=== PATIENT | male | born 1930 | race Hispanic/Latino ===

== ENCOUNTER 2017-11-21 06:20 | Inpatient (IN) | payer OTHER ==
[2017-11-21 06:53] LABS: #Eosinphils 0.1 thou/uL (0.0-0.7); #Lymphocytes 1.2 thou/uL (1.20-3.40); #Monocytes 0.9 thou/uL (0.11-0.59); #Neutrophils 6.7 thou/uL (1.40-6.50); %Basophils 0.1 % (0.0-1.0); %Eosinophils 0.9 % (0.0-10.0); %Lymphocytes 13.8 % (21.0-51.0); %Monocytes 10.4 % (0.0-10.0); %Neutrophils 74.8 % (42.0-75.0); Hemoglobin 12.1 g/dL (14.0-18.0); Mean Corpuscular HGB CONC 31.5 g/dL (32.0-36.0); Mean Corpuscular Hemoglobin 21.5 pg (27.0-31.0); Mean Corpuscular Volume 68.3 fL (78.0-98.0); Mean Platelet Volume 11.2 fL (7.4-10.4); Platelet Count 125 thou/uL (130-400); RBC Distribution Width 15.1 % (11.5-14.5); Red Blood Cell (RBC) Count 5.61 mill/uL (4.70-6.10)
[2017-11-21 07:05] LABS: INR-International Normal Ratio 1.2; Prothrombin Time 15.2 SEC (12.0-14.7)
[2017-11-21 07:12] LABS: ALT (SGPT) 20 U/L (8-55); AST (SGOT) 44 U/L (5-34); Albumin 3.8 g/dL (3.4-4.8); Alkaline Phosphatase 104 U/L (40-150); Anion Gap 16 mmol/L (10-20); BUN (Urea Nitrogen) 18 mg/dL (8.4-25.7); Bilirubin, Total 0.4 mg/dL (0.2-1.2); CK (CPK) 381 U/L (30-200); Calc. Creatinine Clearance 0 mL/min (70-130); Calcium 8.4 mg/dL (7.8-10.44); Carbon Dioxide 15 mmol/L (23-31); Chloride 111 mmol/L (98-107); Estimated GFR-MDRD Greater than 90; Globulin 2.6 g/dL (2.4-3.5); Glucose 111 mg/dL (83-110); Lipase 77 U/L (8-78); Potassium 4.4 mmol/L (3.5-5.1); Protein, Total 6.4 g/dL (5.8-8.1); Sodium 138 mmol/L (136-145)
[2017-11-21 07:24] LABS: PTT 161.5 SEC (22.9-36.1)
[2017-11-21] MEDS ORDERED: Furosemide 40 MG/4 ML VIAL ONE (07:40)
[2017-11-21 07:41] LABS: MDiff Complete? YES; PLT Morphology Comment Appears Decreased; Polychromasia SLIGHT = 2-3 cells (100X) (0-2/hpf)
[2017-11-21] MEDS ORDERED: Heparin 25,000 units/D5W 500 ML ONE (07:49)
[2017-11-21] MEDS ORDERED: Clopidogrel Bisulfate 300 MG TAB ONE (07:59)
[2017-11-21] MEDS ORDERED: Nitroglycerin 100MG/250ML BOT 250 ML ONE (07:59)
[2017-11-21] MEDS ORDERED: Adenosine 6 MG/2 ML VIAL ONE (08:05)
[2017-11-21] MEDS ORDERED: Aggrastat 12.5 MG/250 ML 250 ML ONE (08:23)
--- NOTE | 2017-11-21 08:31 | RAD ---
CHEST 1 VIEW: Date: 11/21/17 HISTORY: Chest pain. FINDINGS: Cardiac silhouette is magnified by projection. Pulmonary vasculature upper limits of normal with mild reticulonodular interstitial prominence throughout each lung and patchy bibasilar infiltrates. Media stinum is midline with aortic calcification. Lungs are hyperinflated. No lobar consolidation or evide nce of pneumothorax. Defibrillator patch overlies the right upper lateral chest. IMPRESSION: 1. Mild pulmonary vascular congestion may be related to increased fluid status. 2. COPD. 3. Atherosclerosis. POS: [facility]
[2017-11-21] MEDS ORDERED: Heparin 10,000 UNITS/1 ML VIAL ONE (08:34)
[2017-11-21] MEDS ORDERED: Mag-Al 1200 mg/1200 mg/30 ML UDCUP PO PRN (08:55)
[2017-11-21] MEDS ORDERED: Aggrastat 12.5 MG/250 ML 250 ML IVPB SCH (09:00)
[2017-11-21] MEDS ORDERED: Nitroglycerin 50 MG/250 ML BOT 250 ML IVPB SCH (09:00)
[2017-11-21] MEDS ORDERED: Sodium Chloride 0.9% 1,000 ML IV SCH (09:00)
[2017-11-21 09:15] LABS: Cardiac Risk 3.7 (Less than 4.5)
--- NOTE | 2017-11-21 10:10 | RAD ---
CHEST ONE VIEW: History: 87-year-old male with history of chest pain, stemi alert. Comparison: 11-21-17 FINDINGS: Monitor leads overlie the chest. Heart size is within normal limits. Bilateral interstitial and alveo lar edema changes are noted, primarily in the perihilar regions with small right pleural effusion, th e amount of edema appears to be less marked than on the prior study. IMPRESSION: Slightly improving bilateral edema. Continued short term follow up. POS: [facility]
--- NOTE | 2017-11-21 10:35 | OP ---
PROCEDURE: Left heart catheterization, left coronary arteriography, left ventriculography, stent placed in the proximal LAD. INDICATION: Anteroseptal STEMI. The patient was brought from the emergency room and right groin was prepped and draped in usual fashion. 1% lidocaine was infiltrated. A 6 Danish sheath placed into the right femoral artery. The J-wire did not advance. Then, a right 4 catheter with a Wholey wire was inserted. This was then removed. Contrast injection was performed through the sheath providing an adequate road map and the right 4 and Wholey wire were reinserted. The right 4 was advanced into the aorta and the decision was made to go ahead and perform right coronary angiography since the right [address]. This was performed and then the right 4 was exchanged over wire for a 6-Danish Kamar left 4. Left coronary arteriography was performed. With the patient's 3-vessel disease and the LAD having reperfused, left ventriculogram was then performed. Pigtail was inserted over the exchange wire and pressure obtained. The left ventricular end diastolic pressure was 52. IV nitroglycerin was increased and the patient was given 40 mg IV Lasix. Over 3-4 minutes the EDP fell to 34. Left ventriculogram was then performed using 30 mL of contrast at 12 mL per second in BRENNAN 30 degree projection. Pressure were obtained. With the 3-vessel disease, it is felt that his best option at this time would be bypass surgery. Two surgeons were in the operating room and a third was out of town and so then the decision was made to proceed with just stenting of the culprit lesion - the proximal LAD. The pigtail was removed over an exchange wire, and a 6-Danish left 3.5 guide catheter was inserted. Floppy choice wire was advanced to the distal LAD. It was predilated with Emerge 3.0 x 15 mm balloon. This was removed and a rebel 3.0 x 20 mm stent was positioned and deployed. There continued to be DERREK 1 flow down the artery. Also, at the proximal portion of the stent was either a dissection or thrombus and the decision was made to stent this area. Rebel 3.0 x 8 mm stent was then positioned proximal to the previous stent and deployed. Multiple doses of intracoronary nitroglycerin and adenosine were given. The flow was better after placement of the second stent. After conclusion of the procedure LAD flow was DERREK 2-3. During the procedure, the patient received multiple doses of intravenous heparin based on the ACT. Also, Aggrastat bolus and drip were started. He received 600 mg of Plavix p.o. The sheath was sutured in place. The patient was transferred to CCU. RESULTS: Pressures, aorta 181/59, mean of 101. Left ventricle 176/51. End diastolic pressure fell to 32 after intravenous Lasix and increasing IV nitroglycerin. CORONARY ARTERIOGRAPHY: 1. Left main was normal. 2. The LAD had a 95% proximal stenosis, 50 and 70% mid stenosis and a 50% distal stenosis. The first diagonal had a 70% stenosis. 3. The circumflex had a 50% mid stenosis. There was a 70% lesion in the first obtuse marginal. 4. The right coronary artery had a 50% proximal stenosis and an 80% mid stenosis. There is a 70% stenosis of the right ventricular branch. LEFT VENTRICULOGRAM: There was anteroapical akinesis with ejection fraction of 30-35%. There was moderate mitral regurgitation. Intervention results; the initial proximal LAD lesion was 95%. Final lesion was 0%. IMPRESSION: 1. Three vessel coronary artery disease. 2. Moderate left ventricular dysfunction. 3. Moderate mitral regurgitation. 4. Successful bare metal stent placement in the proximal LAD. [facility]OSPITALSergey
[2017-11-21] MEDS: Clopidogrel Bisulfate 75 MG TAB PO SCH (10:46)
--- NOTE | 2017-11-21 10:52 | HP ---
HISTORY: Dmitri Sanchez is an 87-year-old male who does not speak Cypriot. He is incarcerated in the senior living in [place]. This morning at approximately 4:00 a.m. he was apparently going to breakfast and had onset of central chest pressure. EKG at the senior living revealed significant ST segment elevation V1-V4. He was taken to the emergency room in [place] and subsequent EKG showed ST segments almost back to normal with inverted T waves anterolaterally. The patient is now transferred here for further care. He currently denies any chest discomfort. PAST MEDICAL HISTORY: Hypertension. MEDICATIONS: None. He was on lisinopril, but apparently stopped taking it because he said he felt better without taking it. The dose is unknown. He denies any history of hypercholesterolemia or diabetes. ALLERGIES: None. OPERATIONS: None. SOCIAL HISTORY: He smoked 1 pack per day prior to being incarcerated. He does not drink. FAMILY HISTORY: Negative for coronary artery disease. REVIEW OF SYSTEMS: Not obtained due to patient needing to go the [employer] and the language barrier. PHYSICAL EXAMINATION: VITAL SIGNS: Blood pressure 140/70, pulse of 100. The patient is on IV nitro drip. He also has received heparin 4000 units. HEENT: PERRL. NECK: Supple. CHEST: Clear. CARDIAC: S1 and S2 are normal, without any S3, S4 or murmurs. Carotid upstrokes normal without bruit. ABDOMEN: Normal bowel sounds, without tenderness. EXTREMITIES: Revealed no clubbing, cyanosis or edema. NEUROLOGIC: Grossly intact. SKIN: Warm and dry. LABORATORY: EKG findings as noted above. Blood work that resulted after the intervention; hemoglobin 12.1, hematocrit 38.3, white count 9000, platelets 125, 000. PTT 161.5 (on heparin drip), INR 1.2, sodium 138, potassium 4.4, chloride 111, carbon dioxide 15, BUN 18, creatinine 0.77, glucose 111, AST 44. CK 381. CK-MB 37.0. Troponin I 2.880. BNP 652. Chest x-ray reveals increased pulmonary vascularity bilaterally. IMPRESSION: 1. Anteroseptal ST-segment elevation myocardial infarction. 2. Hypertension, noncompliant with lisinopril. 3. Former smoker. PLAN: The situation was discussed through a cable tool operator. It was recommended that he undergo cardiac catheterization. Risks were discussed including , myocardial infarction, emergent CABG, restenosis, stent thrombosis, vessel perforation, stent thrombosis, restenosis, allergic reaction, kidney damage, etc. MTDD
[2017-11-21] MEDS: Lisinopril 2.5 MG TAB PO SCH (10:54)
--- NOTE | 2017-11-21 12:45 | CON ---
DATE OF CONSULTATION: 11/21/2017 REQUESTING PHYSICIAN: Dr. Diamond. CHIEF COMPLAINT: Chest pressure. HISTORY OF PRESENT ILLNESS: The patient is an 87-year-old inmate with the [place] [facility]. He awoke from sleep early this morning with severe chest pressure. He denied any nausea, kimberley phoresis, shortness of breath or radiation. He proceeded to shelter line for breakfast and a conversati on with one of the inmates in line with him centered around, he is not feeling well and other inmate was sufficiently concerned to seek out help. He was taken to the [facility] where apparently an EKG s howed anterolateral ST elevation consistent with acute myocardial infarction. He was taken first to the hospital in [place] and then transferred here. By the time he arrived here, the ST elevation chavez d largely resolved, although he had developed inversion of T waves in precordial leads. His chest pa in had for the most part resolved and his first troponin here was 2.880. He was taken urgently to e lab aide where he was found to have 3-vessel coronary artery disease. It was most notable for a ve ry high grade proximal LAD lesion on the order of 95% or perhaps even greater. That was stented usin g a bare metal stent with good angiographic result. Patient has some milder residual disease in his LAD and in circumflex system. He has high-grade lesion in his right coronary. LVEF is moderately re duced around the 30%-40% range with anteroapical hypokinesis or perhaps even akinesis. LVEDPs were m easured ranging from 35-51. He is currently pain free. He denies any antecedent symptoms similar to this, even if not as severe. He denies any other medical history, although apparently he previously had been on lisinopril, but he had quit taking it because he thought it made him feel bad. The shira ent is not taking any medicines on a regular basis in long-term. He was loaded with 300 mg of Plavix an d heparinized here. He was also given Lasix. He is currently on an Aggrastat infusion and daily See vix 75 mg a day and a baby aspirin a day. He has been started on Coreg 3.125 mg b.i.d. and lisinopri l 2.5 mg a day. PAST MEDICAL HISTORY: He denies any medical allergies. SOCIAL HISTORY: He used to smoke, but does not currently. FAMILY HISTORY: He denies any family history of coronary artery disease. REVIEW OF SYSTEMS: He denies any antecedent chest pain, pressure or squeezing, any eye, speech, faci al or extremity symptoms to suggest TIAs or strokes and he denies any leg pain consistent with claudi cation. He denies any shortness of breath. PHYSICAL EXAMINATION: GENERAL: He is an elderly appearing man in no distress. VITAL SIGNS: Heart rate 76, blood pressure 110/52, height is 5 feet 6 inches, weight is 127 pounds. He is edentulous. NECK: He has no JVD, no carotid bruits. LUNGS: He has distant breath sounds. CARDIOVASCULAR: Regular rate and rhythm. ABDOMEN: Soft, nontender, without masses or bruits. EXTREMITIES: He has palpable radial and left femoral pulses. He does not have left femoral or abdom inal bruit. He has an arterial sheath in place in the right groin. He has no obvious varicosities. No clubbing, cyanosis or edema. He has some atrophic skin changes. I was not able to palpate popli teal, dorsalis pedis or posterior tibial pulses. NEUROLOGIC: Grossly nonfocal. LABORATORY DATA AND IMAGING DATA: Showed white count of 9, hemoglobin of 12.1, hematocrit 38.3 and p latelets 125,000. PT is 15.2, INR 1.2. Electrolytes were normal. Glucose 111, BUN 18 and creatinin e 0.77. LFTs were normal. Albumin 3.8, calcium 8.4. CK-MB was 37 and troponin is 2.880, BNP was 65 2.4, triglycerides 87, cholesterol 123, LDL 73, HDL 33. His chest x-ray shows some cardiomegaly, pul monary edema, perhaps some COPD based on the lucency of the lung moffett, prominent of the vasculature and flattening of the diaphragms. He has some aortic knob calcification. EKG showed poor R-wave pr ogression in leads V1 through V3 with ST elevations in V2, 3 and 4 and inverted Ts in V2, 3, 4, and 5 . Cardiac catheterization is as described above. He has 70% or perhaps even 80% ostial lesion in a very high OM1 with some luminal irregularity in the circumflex proper affecting the origin of an OM3. He has a 70% or 80% lesion in the mid right coronary just beyond a large acute marginal. LVEF is a round 40%. IMPRESSION AND RECOMMENDATIONS: As by far the most critical both in angiographic degree of stenosis and location within LAD that has been addressed not quite adequately by PCI, I would be inclined to n ot pursue surgical revascularization for the remaining disease unless there is very clear symptomatic issues with it. Even with patient's advanced age and recent infarction, one could make an argument for multivessel stenting should his remaining disease, previous symptomatic, I would currently recomm end managing him medically.
[2017-11-21 13:44] LABS: CKMB 278.3 ng/mL (0-6.6); Troponin I 61.109 ng/mL (< 0.028)
[2017-11-21] MEDS ORDERED: Iopamidol 370 76% 100 ML VIAL ONE (13:45)
[2017-11-21] MEDS ORDERED: Iopamidol 370 76% 50 ML VIAL FS ONE (13:45)
[2017-11-21 16:05] VITALS: BMI 22.4
[2017-11-21] MEDS: Carvedilol 3.125 MG TAB PO SCH (17:33)
[2017-11-21 19:09] LABS: CKMB 252.7 ng/mL (0-6.6); Troponin I 97.997 ng/mL (< 0.028)
[2017-11-22 05:22] LABS: #Lymphocytes 1.2 thou/uL (1.20-3.40); #Monocytes 1.3 thou/uL (0.11-0.59); #Neutrophils 6.8 thou/uL (1.40-6.50); %Basophils 0.2 % (0.0-1.0); %Eosinophils 0.4 % (0.0-10.0); %Monocytes 13.5 % (0.0-10.0); %Neutrophils 72.9 % (42.0-75.0); Hemoglobin 10.9 g/dL (14.0-18.0); Mean Corpuscular HGB CONC 31.9 g/dL (32.0-36.0); Mean Corpuscular Hemoglobin 21.6 pg (27.0-31.0); Mean Corpuscular Volume 67.8 fL (78.0-98.0); Mean Platelet Volume 10.1 fL (7.4-10.4); Platelet Count 224 thou/uL (130-400); RBC Distribution Width 15.1 % (11.5-14.5); Red Blood Cell (RBC) Count 5.04 mill/uL (4.70-6.10); White Blood Cell (WBC) Count 9.3 thou/uL (4.8-10.8)
[2017-11-22 05:26] LABS: ALT (SGPT) 42 U/L (8-55); AST (SGOT) 131 U/L (5-34); Albumin 3.5 g/dL (3.4-4.8); Alkaline Phosphatase 98 U/L (40-150); Anion Gap 11 mmol/L (10-20); BUN (Urea Nitrogen) 25 mg/dL (8.4-25.7); Bilirubin, Total 0.6 mg/dL (0.2-1.2); Calc. Creatinine Clearance 54 mL/min (70-130); Calcium 8.5 mg/dL (7.8-10.44); Carbon Dioxide 21 mmol/L (23-31); Chloride 111 mmol/L (98-107); Estimated GFR-MDRD Greater than 90; Globulin 2.5 g/dL (2.4-3.5); Glucose 111 mg/dL (83-110); Potassium 4.3 mmol/L (3.5-5.1); Sodium 139 mmol/L (136-145)
[2017-11-22] MEDS: Clopidogrel Bisulfate 75 MG TAB PO SCH (09:13)
[2017-11-22] MEDS: Lisinopril 2.5 MG TAB PO SCH (09:13)
[2017-11-22] MEDS: Carvedilol 3.125 MG TAB PO SCH ×2 (09:13→16:47)
[2017-11-22] MEDS: Atorvastatin Calcium 20 MG TAB PO SCH (21:09)
--- NOTE | 2017-11-23 00:57 | CON ---
DATE OF CONSULTATION: 11/22/2017 HISTORY OF PRESENT ILLNESS: He is an 87-year-old inmate from [place] with acute coronary artery dis ease, STEMI, who underwent emergency cardiac catheterization by Cardiology. He is in the ICU, reason for consult. He was an inmate to the [place] [facility] system for a period of time. History is well outlined in his extensive medical notes. Cardiology found EF of 30%-35%, anterior apical akinesia, three-vessel LAD, moderate LV dysfunction. PAST MEDICAL HISTORY: History from the [facility] system states that his past medical history is pertine nt for hepatitis C, anemia, hypertension. PREVIOUS SURGERIES: Apparently retinal detachment. MEDICATIONS: From the list has included lisinopril 20 mg a day. Apparently, he was not taking his m edication. He was noncompliant. SOCIAL HISTORY: Tobacco, former alcohol, none. REVIEW OF SYSTEMS: Otherwise, difficult to obtain, but appears to be negative. He appears to be in no distress in the ICU with blood pressure 105/37, sats are 98, pulse rate of 80. Chest, no wheezing , no crackles. Cardiac, normal S1, S2. No gallops. ABDOMEN: Soft. No masses. LABORATORY DATA AND IMAGING: Electrolytes are normal. White count is normal. H&H is stable. Tropo dusty is elevated. EKG shows septal infarct. His chest x-ray shows CHF findings, cardiomegaly, increa sed vascularity. Appears somewhat worse following the catheterization. PHYSICAL EXAMINATION: GENERAL: He is awake, alert, responsive, in no distress. VITAL SIGNS: Pulse 80, sats 98%, blood pressure 130/80, respiration rate 18. CHEST: Bilateral crackles. CARDIAC: Normal S1, S2. No gallops. ABDOMEN: Soft. NEURO: Neurologically appropriate. New labs shows otherwise noted normal. IMPRESSION: 1. Status post myocardial infarction. 2. Status post cardiac catheterization. 3. Congestive heart failure. 4. Former smoker. 5. Hypertension. PLAN: Pulmonary will follow while in the ICU. If stable as per Cardiology, he can be moved out. Co ntinue cardiac care. Continue diuretics. Supportive care. This is a consultation note of 70 minutes, in which 50% spent in direct patient care.
[2017-11-23] MEDS: Lisinopril 2.5 MG TAB PO SCH (09:45)
[2017-11-23] MEDS: Clopidogrel Bisulfate 75 MG TAB PO SCH (09:46)
[2017-11-23] MEDS: Carvedilol 3.125 MG TAB PO SCH ×2 (09:47→16:14)
--- NOTE | 2017-11-23 12:27 | PQF ---
CLINICAL DOCUMENTATION IMPROVEMENT CLARIFICATION FORM: ICD-10 Updated PLEASE DO AN ADDENDUM TO THE PROGRESS NOTE WITH ANY DOCUMENTATION UPDATES OR ADDITIONS AND CARRY THROUGH TO DC SUMMARY. THANK YOU. DATE: 11/23/17 ATTN: DR. THOMSON Please exercise your independent, professional judgment in responding to the clarification form. Clinical indicators are provided on the bottom of this form for your review Please check appropriate box(s): HEART FAILURE: A. TYPE: [ ] Systolic / HFrEF [ ] Diastolic / HFpEF [ ] Combined Systolic / Diastolic B. ACUITY [ ] Acute [ ] Acute on Chronic [ ] Chronic [ ] Other diagnosis [ ] Unable to determine In addition, please specify: Present on Admission (POA): [ ] Yes [ ] No [ ] Unable to determine For continuity of documentation, please document condition throughout progress notes and discharge summary. Thank You. CLINICAL INDICATORS - SIGNS / SYMPTOMS / LABS CONSULTATION NOTE 11/22: "IMPRESSION: CONGESTIVE HEART FAILURE" BNP 652.4 RISKS: H/O HYPERTENSION (NONCOMPLIANCE WITH LISINOPRIL PER H&P 11/21) [place] TREATMENT: COREG (11/21-PRESENT) LISINOPRIL (11/21-PRESENT) CARDIOLOGY CONSULT CARDIAC MONITORING (This form is maintained as a part of the permanent medical record) 2014 [employer]. All Rights Reserved [email or web address] [email or web address] Office: [phone] [facility]AMPUSSergey
[2017-11-23] MEDS ORDERED: Furosemide 20 MG/2 ML VIAL SLOW IVP SCH (16:15)
--- NOTE | 2017-11-23 17:21 | RAD ---
CHEST ONE VIEW: 11/23/17 HISTORY: Hematemesis. COMPARISON: 11/21/17. FINDINGS: Atherosclerosis of the aorta is again noted. Normal cardiac silhouette. The pulmonary vessels are wit hin normal limits. Lungs are hyperinflated. Chronic changes throughout the lung parenchyma. No signif icant change in the degree of opacification. No significant pleural fluid. No pneumothorax or osseous abnormalities. IMPRESSION: Persistent opacification of the lung parenchyma which is presumed to be due to edema/volume overload. POS: [facility]
[2017-11-23] MEDS: Atorvastatin Calcium 20 MG TAB PO SCH (20:14)
[2017-11-23] MEDS ORDERED: Furosemide 40 MG/4 ML VIAL ONE (22:59)
[2017-11-23] MEDS: Acetaminophen 325 MG TAB PO PRN (23:07)
[2017-11-23] MEDS ORDERED: Furosemide 40 MG/4 ML VIAL SLOW IVP SCH (23:15)
[2017-11-24 06:21] LABS: Anion Gap 16 mmol/L (10-20); BUN (Urea Nitrogen) 43 mg/dL (8.4-25.7); Calc. Creatinine Clearance 45 mL/min (70-130); Calcium 8.2 mg/dL (7.8-10.44); Carbon Dioxide 18 mmol/L (23-31); Chloride 106 mmol/L (98-107); Estimated GFR-MDRD 67; Glucose 121 mg/dL (83-110); Potassium 3.8 mmol/L (3.5-5.1); Sodium 136 mmol/L (136-145)
[2017-11-24] MEDS: Carvedilol 3.125 MG TAB PO SCH ×2 (08:02→16:35)
[2017-11-24] MEDS: Furosemide 20 MG TAB PO SCH (08:02)
[2017-11-24] MEDS: Acetaminophen 325 MG TAB PO PRN (08:02)
[2017-11-24] MEDS: Clopidogrel Bisulfate 75 MG TAB PO SCH (08:02)
[2017-11-24] MEDS: Lisinopril 5 MG TAB PO SCH (08:02)
[2017-11-24] MEDS: Atorvastatin Calcium 20 MG TAB PO SCH (21:05)
[2017-11-25] MEDS ORDERED: Furosemide 40 MG/4 ML VIAL SLOW IVP SCH (04:15)
[2017-11-25] MEDS: Carvedilol 3.125 MG TAB PO SCH ×2 (09:28→16:32)
[2017-11-25] MEDS: Lisinopril 5 MG TAB PO SCH (09:28)
[2017-11-25] MEDS: Clopidogrel Bisulfate 75 MG TAB PO SCH (09:28)
[2017-11-25] MEDS: Furosemide 20 MG TAB PO SCH (09:28)
--- NOTE | 2017-11-25 11:01 | RAD ---
RADIOGRAPH CHEST 1 VIEW: Date: 11/25/17 Time: 0413 hours HISTORY: 87-year-old male with respiratory distress and hemoptysis. COMPARISON: 11/23/17 at 1542 hours. FINDINGS: Moderate, broad infiltrate in right upper lobe has become slightly worse. Infiltrate at the right med ial lower lung zone has become slightly worse. There is new dense infiltrate at the medial base of th e left lower lobe. No cardiomegaly or pulmonary venous engorgement. No pneumothorax. Hyperinflation c onsistent with COPD. No mediastinal widening. IMPRESSION: 1. Interval worsening of right upper lobe and right lower lobe pneumonia. 2. Interval development of new left lower lobe pneumonia. 3. Emphysema. JANN [] POS: [facility]
[2017-11-25 16:08] LABS: Hemoglobin 9.5 g/dL (14.0-18.0); Mean Corpuscular HGB CONC 32.1 g/dL (32.0-36.0); Mean Corpuscular Volume 68.6 fL (78.0-98.0); Mean Platelet Volume 10.4 fL (7.4-10.4); Platelet Count 185 thou/uL (130-400); Red Blood Cell (RBC) Count 4.32 mill/uL (4.70-6.10); White Blood Cell (WBC) Count 12.6 thou/uL (4.8-10.8)
[2017-11-25 16:24] LABS: Anisocytosis SLIGHT = 6-15 cells (100X) (0-5/hpf); Band 22 % (5-11); Lymphocytes 7 % (21-51); MDiff Complete? YES; Metamyelocyte 4 % (0-0); Microcytosis SLIGHT = 6-15 cells (100X) (0-5/hpf); Neutrophil 66 % (42-75); Ovalocytes SLIGHT = 2-5 cells (100X) (0-1/hpf); Poikilocytosis SLIGHT = 6-15 cells (100X) (0-5/hpf); Reactive Lymphocytes 1 % (0-10)
[2017-11-25] MEDS ORDERED: Sodium Chloride 0.9% 1,000 ML IV SCH (16:45)
[2017-11-25 16:58] LABS: Iron 14 ug/dL (65-175); Iron Binding Capacity, Total 289 mcg/dL (261-462)
[2017-11-25] MEDS: Piperacillin/Tazobactam 2.25 GM in Sodium Chloride 0.9% 100 ML IVPB SCH (20:50)
[2017-11-25] MEDS: Atorvastatin Calcium 20 MG TAB PO SCH (20:50)
--- NOTE | 2017-11-25 22:51 | CON ---
DATE OF CONSULTATION: 11/25/2017 HISTORY OF PRESENT ILLNESS: Mr. Sanchez for coronary disease. He had an LAD stent placed. He was seen by Dr. Johnson in the ICU. He signed off, Mr. Sanchez was transferred out. I was consulted today for an abnormal chest radiograph. His ejection fraction is 30% to 35%. He has on echocardiogram, mitral regurgitation was quantitated as moderate. He also has echocardiogram, evidence of pulmonary hypertension. He has moderate aortic insufficiency as well as tricuspid insufficiency. PAST HISTORY: He had an LAD stent placed. SOCIAL HISTORY: Not obtained. FAMILY HISTORY: Non contributory. REVIEW OF SYSTEMS: 10 point system review completed; otherwise negative. We were reconsulted for his radiograph. He denies cough. He denies shortness of breath. PHYSICAL EXAMINATION: VITAL SIGNS: His blood pressure 93/55, heart rate 58, respiratory rate is 20. He was lying flat in bed. Temperature curve has been reviewed. He had a temperature of 100.6 two days ago at 8:17 p.m., but he has not had any fever since then. GENERAL: He appears his age, he has temporal muscle wasting. NECK: Supple. He has no cervical lymphadenopathy. CHEST: Only hear very faint crackles almost into his chest. HEART: Regular rhythm. ABDOMEN: Soft. EXTREMITIES: Without clubbing, cyanosis, or edema. HEENT: pupils react. LABORATORY DATA: White count 2 days ago was 9.3. There is no lab today. Electrolytes yesterday were normal with the exception of a BUN of 43. His troponin peaked at 97 on the 1st. His BNP on 1st is 652. Chest radiograph reviewed looks more like pulmonary edema than pneumonia. He has absolutely no cough. Surprisingly; however, he is perfectly comfortable flat in bed. Given his relative hypotension. Gentle diuresis will have to be done cautiously. It is not unreasonable to start him on antimicrobial therapy, but I really doubt he has pneumonia. This is a 70 minute consult, with greater than 50% of time spent on unit coordination of care. AUDRA
--- NOTE | 2017-11-25 23:07 | EKG ---
Test Reason : POST STENTS X2-LAD Blood Pressure : / mmHG Vent. Rate : 089 BPM Atrial Rate : 089 BPM P-R Int : 156 ms QRS Dur : 084 ms QT Int : 372 ms P-R-T Axes : 078 067 099 degrees QTc Int : 452 ms Normal sinus rhythm Anteroseptal infarct (cited on or before 21-NOV-2017) T wave abnormality, consider lateral ischemia * ACUTE NM * Abnormal ECG When compared with ECG of 21-NOV-2017 06:23, (Unconfirmed) Serial changes of evolving Anteroseptal infarct Present Confirmed by Lilliana WILLIAM ([id number]) on 11/25/2017 11:06:38 PM Referred By: BERTO Confirmed By:Lilliana WILLIAM
--- NOTE | 2017-11-25 23:10 | EKG ---
Test Reason : Blood Pressure : / mmHG Vent. Rate : 085 BPM Atrial Rate : 085 BPM P-R Int : 154 ms QRS Dur : 084 ms QT Int : 362 ms P-R-T Axes : 075 067 118 degrees QTc Int : 430 ms Sinus rhythm with Premature atrial complexes with Abberant conduction Septal infarct (cited on or before 21-NOV-2017) Abnormal ECG When compared with ECG of 21-NOV-2017 09:26, (Unconfirmed) Abberant conduction is now Present Serial changes of evolving Septal infarct Present Confirmed by Lilliana WILLIAM ([id number]) on 11/25/2017 11:09:52 PM Referred By: BERTO Confirmed By:Lilliana WILLIAM
[2017-11-26] MEDS: Piperacillin/Tazobactam 2.25 GM in Sodium Chloride 0.9% 100 ML IVPB SCH (06:14)
[2017-11-26] MEDS: Clopidogrel Bisulfate 75 MG TAB PO SCH (08:19)
--- NOTE | 2017-11-26 09:58 | PRG ---
DATE OF SERVICE: 11/26/2017 SUBJECTIVE: This morning he is awake, alert, responsive, denies any shortness of breath. His EF was estimated at 40%. His chest x-ray did show some right-sided infiltrate, though clearly it appears t o be secondary to congestive heart failure. He has got no fever. Not coughing anything that looks d iscolored. PHYSICAL EXAMINATION: VITAL SIGNS: His maximum temperature has been 99.1. Blood pressure is 116/59, satting 96% on room a ir, respirations 16. CHEST: Chest reveals decreased breath sounds, no wheezing. CARDIAC: Normal S1, S2. No gallops. ABDOMEN: Soft, no masses. His BNP was 2000, H&H is 9 and 26. White count 12,000 with a slight left shift. IMPRESSION: Right-sided infiltrate, congestive heart failure versus pneumonia though he appears rela tively asymptomatic. PLAN: I suggest switching him over to oral Augmentin. Continue PT and supportive care. Eventually placement.
[2017-11-26] MEDS ORDERED: Furosemide 20 MG TAB PO SCH (15:30)
[2017-11-26] MEDS: Carvedilol 3.125 MG TAB PO SCH (15:59)
[2017-11-26] MEDS: Acetaminophen 325 MG TAB PO PRN (17:31)
[2017-11-26] MEDS: Atorvastatin Calcium 20 MG TAB PO SCH (21:28)
[2017-11-26] MEDS: Amoxicillin/Potassium Clav 250 MG TAB PO SCH (21:28)
[2017-11-27 05:42] LABS: Anion Gap 15 mmol/L (10-20); BUN (Urea Nitrogen) 44 mg/dL (8.4-25.7); Calc. Creatinine Clearance 41 mL/min (70-130); Calcium 8.3 mg/dL (7.8-10.44); Carbon Dioxide 21 mmol/L (23-31); Chloride 102 mmol/L (98-107); Estimated GFR-MDRD 66; Glucose 116 mg/dL (83-110); Potassium 3.4 mmol/L (3.5-5.1); Sodium 135 mmol/L (136-145)
[2017-11-27] MEDS: Amoxicillin/Potassium Clav 250 MG TAB PO SCH ×2 (08:49→20:02)
[2017-11-27] MEDS: Clopidogrel Bisulfate 75 MG TAB PO SCH (08:50)
[2017-11-27] MEDS: Carvedilol 3.125 MG TAB PO SCH ×2 (08:51→17:08)
[2017-11-27] MEDS: Ferrous Sulfate 325 MG TAB PO SCH ×2 (08:51→17:08)
[2017-11-27] MEDS: Furosemide 20 MG TAB PO SCH ×2 (08:51→14:02)
--- NOTE | 2017-11-27 09:31 | PRG ---
DATE OF SERVICE: 11/27/2017 This morning he is wide awake. PHYSICAL EXAMINATION: VITAL SIGNS: Afebrile, temperature 98, sats 100% on room air, respiratory rate 18, blood pressure 14 0/65. CHEST: Chest reveals decreased breath sounds, no wheezing. CARDIAC: Normal S1, S2. No gallops. ABDOMEN: Soft, no masses. Creatinine is normal. IMPRESSION: 1. Congestive heart failure. 2. Myocardial infarction. 3. Coronary artery disease. 4. Possible pneumonia. PLAN: He is on Augmentin for several days. He can be discharged home anytime. Pulmonary Critical c are will follow at a distance. Please call as needed.
[2017-11-27] MEDS: Atorvastatin Calcium 20 MG TAB PO SCH (20:02)
[2017-11-28] MEDS ORDERED: Potassium Chloride 10 MEQ TAB PO SCH (08:00)
--- NOTE | 2017-11-28 08:03 | RAD ---
PORTABLE CHEST: Date: 11/28/17 HISTORY: Shortness of breath. COMPARISON: 11/25/17. FINDINGS: There continues to be alveolar infiltrate in the right upper lobe. Small right effusion. Left lung ap pears clear. Heart and mediastinum unremarkable. IMPRESSION: Persistent right upper lobe infiltrate and small right effusion. POS: [facility]
[2017-11-28] MEDS ORDERED: Nitroglycerin 0.4 MG TAB (25 Tab Bottle) SL PRN (08:25)
--- NOTE | 2017-11-28 08:29 | PRG ---
DATE OF SERVICE: 11/28/2017 SUBECTIVE: Asymptomatic, afebrile. OBJECTIVE: VITAL SIGNS: Temperature 98, pulse 65, respiration 18, O2 sat 98% on room air, blood pressure 130/59 . CHEST: Decreased breath sounds, no wheezing. CARDIAC: Normal S1, S2. No gallops. ABDOMEN: Soft. No masses. IMPRESSION: 1. Congestive heart failure, coronary artery disease, myocardial infarction. 2. Possibly pneumonia. PLAN: He is on oral antibiotics. He can be discharged home anytime. Pulmonary will follow at a dis tance.
[2017-11-28] MEDS ORDERED: Furosemide 20 MG TAB PO SCH (09:00)
[2017-11-28] MEDS ORDERED: Carvedilol 3.125 MG TAB PO SCH ×2 (09:00→17:00)
[2017-11-28] MEDS ORDERED: Lisinopril 2.5 MG TAB PO SCH (09:00)
[2017-11-28] MEDS: Carvedilol 3.125 MG TAB PO SCH (09:30)
[2017-11-28] MEDS: Ferrous Sulfate 325 MG TAB PO SCH (09:35)
[2017-11-28] MEDS: Clopidogrel Bisulfate 75 MG TAB PO SCH (09:35)
[2017-11-28] MEDS: Amoxicillin/Potassium Clav 250 MG TAB PO SCH (09:40)
[2017-11-28 11:35] VITALS: BP 123/56; TEMP 98.3
--- NOTE | 2017-11-28 15:26 | DIS ---
DISCHARGE DIAGNOSES: 1. Anteroseptal ST-segment elevation myocardial infarction with peak MB 278.3. Troponin I at 97.997 . 2. Placement of bare metal stent in the proximal left anterior descending. 3. Three-vessel coronary artery disease felt by Surgery not to be an optimal candidate for bypass a t this time. 4. Hypertension, noncompliant with lisinopril. 5. Hypercholesterolemia. 6. Former smoker. 7. Right upper lobe pneumonia. DISCHARGE MEDICATIONS: Augmentin 250 mg 1 b.i.d. x5 more days, aspirin 81 daily, atorvastatin 20 mg at bedtime, carvedilol 3.125 b.i.d., Plavix 75 mg daily x1 month, ferrous sulfate 325 b.i.d., furosem argelia 20 mg q.a.m., lisinopril 2.5 mg 1/2 daily, nitroglycerin p.r.n., potassium 10 mEq q.a.m. DISPOSITION: The patient apparently will follow up at [facility]. Continued issues that need to be addres sed are his 3-vessel disease and consideration of stenting of the right coronary artery once his ante rior wall recovers from this infarct. He also has what appears to be iron deficiency anemia and this has not been evaluated thus far. HOSPITAL COURSE: Mr. Sanchez is incarcerated in the senior living in [place]. On the morning of admission at approximately 4:00 a.m. he was going to breakfast, had onset of central chest pressure. EKG at [facility] revealed significant ST segment elevation V1 through V4. [facility] in [place] and subsequent EKG showed ST segments almost back to normal with inverted T waves anter olaterally. He was then transferred here for further care. On his arrival here, he denied any chest discomfort. He has a history of hypertension and was on lisinopril 10 mg daily; however, he stopped taking that several months ago. He underwent a catheterization after arrival here. This revealed normal left main, 95% proximal LAD, 50 and 70% mid LAD and 50% distal LAD. There is a 70% lesion in the first diagonal. The circumflex had a 50% mid stenosis and a 70% stenosis in the first obtuse marginal. The right coronary artery h ad a 50% proximal stenosis and 80% mid stenosis and a 70% stenosis of an RV branch. Left ventriculog wanda revealed anteroapical akinesis with ejection fraction of 30-35%. There was moderate mitral regur gitation. With his 3-vessel disease, it was felt that consideration should be given to bypass surger y; however, no surgeons were available as they were all in the operating room and therefore, the deci ai was made to proceed with stenting of the culprit lesion. Rebel 3.0 x 20 mm was placed in the pr oximal LAD. Proximal to the stent Rebel 2.0 x 8 mm stent was also placed. 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 He was later s een by Surgery who felt that he needed to recover from his infarct before any further intervention. His cholesterol is 123, triglycerides 87, HDL 33, LDL 73 and he was placed on atorvastatin. Two days after admission, he began to develop cough and hemoptysis, which has improved with IV Lasix. Chest x-ray revealed increased pulmonary vascularity. He was diuresed; however, it is also felt this proba abdiel represented pneumonia and he was placed on IV Augmentin and then later switched to p.o. Augmenti n. At the time of discharge chest x-ray showed definite right upper lobe infiltrate. Echocardiogram revealed ejection fraction of 35-40% with hypokinesis of the anteroapical, anterosepta l torres and the apex. There is moderate mitral regurgitation, aortic valvular sclerosis, mild aortic insufficiency and moderate severe tricuspid regurgitation. It is also of note that he had severely reduced MCV of 68.3 and MCH of 21.5. Iron was 14, TIBC 289. Consideration should be given to [facility] evaluation of this in the future; however, he was placed on ferrous sulfate 325 b.i.d. At the time of discharge, he is walking 110 feet in the fuller without shortness of breath or chest dis comfort. He will be discharged to complete his course of antibiotics and apparently he will be follo wed up at [facility].
== END 2017-11-28 14:43 | DRG 248 ==
LOC: EDBD 06:20 → ERS 06:20 → CCU 08:48 → 2NO 11-22 20:53
PROVIDERS: ADMIT Internal Medicine Cardiovascular Disease; ATTEND Internal Medicine Cardiovascular Disease
PROC: 02703EZ Dilation of Coronary Artery, One Artery with Two Intraluminal Devices, Percutaneous Approach (ICD-10-PCS; principal; 2017-11-21)
PROC: 4A023N7 Measurement of Cardiac Sampling and Pressure, Left Heart, Percutaneous Approach (ICD-10-PCS; 2017-11-21)
PROC: B2111ZZ Fluoroscopy of Multiple Coronary Arteries using Low Osmolar Contrast (ICD-10-PCS; 2017-11-21)
PROC: B2151ZZ Fluoroscopy of Left Heart using Low Osmolar Contrast (ICD-10-PCS; 2017-11-21)
DX: I21.09 ST elevation (STEMI) myocardial infarction involving other coronary artery of anterior wall (principal); J18.9 Pneumonia, unspecified organism; Z91.14 Patient's other noncompliance with medication regimen; I25.10 Atherosclerotic heart disease of native coronary artery without angina pectoris; I34.0 Nonrheumatic mitral (valve) insufficiency; I11.0 Hypertensive heart disease with heart failure; I50.9 Heart failure, unspecified; I27.20 Pulmonary hypertension, unspecified; Z87.891 Personal history of nicotine dependence
CPT/HCPCS: 36415; 71045; 80048; 80053; 80061; 82550; 82553; 83540; 83550; 83690; 83880; 84484; 85007; 85025; 85027; 85347; 85610; 85730; 86850; 86900; 86901; 87040; 92928; 92934; 92977; 93005; 93010; 93306; 93458; 93798; A4216; C1725; C1769; C1876; C1887; C9603; J0153; J1644; J1940; J1956; J2543; J3246; J7050; J7620

== ENCOUNTER 2017-12-17 11:09 | Inpatient (IN) | payer OTHER ==
[~2017-12-17 11:09] MED LIST: Iopamidol 370 76% 100 ML VIAL ONE; Iopamidol 370 76% 50 ML VIAL FS ONE
[2017-12-17 11:32] LABS: #Eosinphils 0.1 thou/uL (0.0-0.7); #Lymphocytes 1.7 thou/uL (1.20-3.40); #Neutrophils 7.1 thou/uL (1.40-6.50); %Basophils 0.4 % (0.0-1.0); %Eosinophils 1.1 % (0.0-10.0); %Lymphocytes 16.9 % (21.0-51.0); %Monocytes 10.3 % (0.0-10.0); %Neutrophils 71.3 % (42.0-75.0); Hemoglobin 10.1 g/dL (14.0-18.0); Mean Corpuscular Hemoglobin 21.6 pg (27.0-31.0); Mean Corpuscular Volume 69.7 fL (78.0-98.0); Platelet Count 224 thou/uL (130-400); RBC Distribution Width 16.6 % (11.5-14.5); Red Blood Cell (RBC) Count 4.67 mill/uL (4.70-6.10)
[2017-12-17 11:46] LABS: INR-International Normal Ratio 1.2; Prothrombin Time 14.9 SEC (12.0-14.7)
[2017-12-17] MEDS ORDERED: Nitroglycerin 100MG/250ML BOT 250 ML ONE (11:46)
[2017-12-17] MEDS ORDERED: Midazolam HCl 2 mg/2 ml Vial ONE (11:52)
[2017-12-17] MEDS ORDERED: Fentanyl 100 MCG/2 ML VIAL ONE (11:52)
[2017-12-17 11:53] LABS: ALT (SGPT) 17 U/L (8-55); AST (SGOT) 24 U/L (5-34); Albumin 3.9 g/dL (3.4-4.8); Alkaline Phosphatase 131 U/L (40-150); Anion Gap 14 mmol/L (10-20); BUN (Urea Nitrogen) 16 mg/dL (8.4-25.7); Bilirubin, Total 0.3 mg/dL (0.2-1.2); CK (CPK) 60 U/L (30-200); Calc. Creatinine Clearance 0 mL/min (70-130); Calcium 8.5 mg/dL (7.8-10.44); Carbon Dioxide 19 mmol/L (23-31); Chloride 108 mmol/L (98-107); Estimated GFR-MDRD 88; Globulin 2.6 g/dL (2.4-3.5); Glucose 151 mg/dL (83-110); Potassium 3.8 mmol/L (3.5-5.1); Protein, Total 6.5 g/dL (5.8-8.1); Sodium 137 mmol/L (136-145)
[2017-12-17 11:57] LABS: PTT 190.9 SEC (22.9-36.1)
[2017-12-17 11:57] LABS: CKMB 2.2 ng/mL (0-6.6); Troponin I 0.071 ng/mL (< 0.028)
[2017-12-17] MEDS ORDERED: Adenosine 6 MG/2 ML VIAL ONE (12:20)
[2017-12-17] MEDS ORDERED: Heparin 10,000 UNITS/1 ML VIAL ONE (12:21)
[2017-12-17] MEDS ORDERED: Aggrastat 12.5 MG/250 ML 250 ML ONE (12:45)
[2017-12-17] MEDS: Sodium Chloride 0.9% 1,000 ML IV SCH ×2 (13:26→23:48)
--- NOTE | 2017-12-17 14:16 | CON ---
DATE OF CONSULTATION: 12/17/2017 REASON FOR CONSULTATION: Acute myocardial infarction. HISTORY OF PRESENT ILLNESS: Mr. Sanchez is an 87-year-old gentleman who has been seen and evaluated by Dr. Maximo Diamond on 11/21/2017. He underwent bare metal stent placement to the proximal portio n of the LAD. Surgery was not recommended due to poor targets. Mr. Sanchez states he was not on aspirin or Plavix once he returned to the correction. He was only taking Tylenol p.r.n. He presented with acute onset chest pain. This was 1 hour prior to presentation. He was found to have ST segment elevation. After reviewing his films, he did have a near ostial stent placed to the LAD. He also had severe erna nosis present in the right coronary artery. PAST MEDICAL HISTORY: CAD status post DC, hypertension. MEDICATIONS: Tylenol p.r.n. ALLERGIES: None. SOCIAL HISTORY: One pack per day. No current alcohol use. REVIEW OF SYSTEMS: A 10 review of systems was reviewed and as above, otherwise negative. PHYSICAL EXAMINATION: VITAL SIGNS: Blood pressure 137/76, pulse 80, respirations 20. GENERAL: Patient is a pleasant male who is currently in acute distress. The patient appears his stat ed age. NEUROLOGIC: The patient is alert and oriented times 3 with no focal neurologic deficits. HEENT: Sclerae without icterus. Mouth has moist mucous membranes with normal pallor. NECK: No JVD. Carotid upstroke brisk. No bruits bilaterally. LUNGS: Clear to auscultation with unlabored respirations. BACK: No scoliosis or kyphosis. CARDIAC: Regular rate and rhythm with normal S1 and S2. No S3 or S4 noted. No significant rubs, mur murs, thrills, or gallops noted throughout the precordium. PMI is not displaced. There is no parast ernal heave. ABDOMEN: Soft, nontender, nondistended. No peritoneal signs present. No hepatosplenomegaly. No abn ormal striae. EXTREMITIES: 2+ femoral and 2+ dorsalis pedis pulses. No cyanosis, clubbing, or edema. SKIN: No gross abnormalities. LABORATORY AND X-RAY FINDINGS: EKG: Normal sinus rhythm with ST segment elevation noted anteriorly. IMPRESSION: 1. Acute myocardial infarction. 2. Noncompliance. RECOMMENDATIONS: Very difficult situation. At this point, given his current presentation, he likely has a subacute thrombosis. I discussed the procedure in full detail with Mr. Sanchez. The risks in cluded, but are not limited to the following: , stroke, DC, need for emergency surgery, loss of limb, bleeding, and infection, as well as a reaction to the dye causing kidney failure and needing l anais-term dialysis. I also discussed the risks of PCI to include all of the above including coronary dissection and perforation in addition to acute stent thrombosis and restenosis. All questions about the procedure were answered. Given the above, the patient agreed to proceed with coronary angiograp hy and possible PCI. All questions were answered. Given the above, the patient agreed to proceed with the above procedure . Further recommendations pending the above.
--- NOTE | 2017-12-17 14:16 | CON ---
DATE OF SERVICE: 12/17/2017 SUBJECTIVE: Mr. Sanchez underwent urgent coronary angiography and was found to have subacute thrombosis of the proximal portion of the stent to the LAD. The patient states he has not been taking his aspirin or Plavix at the detention. After proceeding with angiography in addition to thrombectomy and balloon angioplasty, he had significant stenosis noted to the mid LAD and small dissection distal the the stent under IVUS. After consulting with Dr. Maximo Diamond, his primary cell stripper and Dr. Oumar Connor, it was felt he was not a good surgical candidate due to a very high troponin and CK-MB during his last hospitalization and unlikely to benefit from revascularization to the LAD via CABG. It was then decided to proceed with stent implantation with a bare metal stent to the mid LAD. This was placed successfully. The patient was transferred to the ICU in guarded condition. AUDRA
[2017-12-17 15:40] LABS: CKMB 268.3 ng/mL (0-6.6)
[2017-12-17] MEDS ORDERED: Aggrastat 12.5 MG/250 ML 250 ML IVPB SCH (16:00)
--- NOTE | 2017-12-17 16:10 | EKG ---
Test Reason : POST STENTS X2-LAD Blood Pressure : / mmHG Vent. Rate : 077 BPM Atrial Rate : 077 BPM P-R Int : 152 ms QRS Dur : 092 ms QT Int : 420 ms P-R-T Axes : 071 077 099 degrees QTc Int : 475 ms Normal sinus rhythm Anteroseptal infarct (cited on or before 21-NOV-2017) Marked T wave abnormality, consider lateral ischemia * ACUTE [place] * Abnormal ECG Confirmed by LAURA HERNANDEZ ([id number]) on 12/17/2017 4:09:58 PM Referred By: CLAIR Confirmed By:LAURA HERNANDEZ
[2017-12-17] MEDS ORDERED: Nitroglycerin 50 MG/250 ML BOT 250 ML IVPB SCH (17:00)
[2017-12-17 20:33] LABS: CKMB 253.4 ng/mL (0-6.6); Critical Call CKMBM RESULT DECREASING
[2017-12-17 20:53] LABS: Troponin I 136.609 ng/mL (< 0.028)
[2017-12-17] MEDS ORDERED: Atorvastatin Calcium 40 MG TAB PO SCH (21:00)
[2017-12-18 04:35] LABS: #Lymphocytes 0.7 thou/uL (1.20-3.40); #Monocytes 0.8 thou/uL (0.11-0.59); #Neutrophils 4.8 thou/uL (1.40-6.50); %Basophils 0.3 % (0.0-1.0); %Eosinophils 0.6 % (0.0-10.0); %Lymphocytes 10.8 % (21.0-51.0); %Monocytes 12.1 % (0.0-10.0); %Neutrophils 76.1 % (42.0-75.0); Hemoglobin 8.1 g/dL (14.0-18.0); Mean Corpuscular HGB CONC 31.4 g/dL (32.0-36.0); Mean Corpuscular Hemoglobin 22.2 pg (27.0-31.0); Mean Corpuscular Volume 70.8 fL (78.0-98.0); Mean Platelet Volume 8.8 fL (7.4-10.4); Platelet Count 202 thou/uL (130-400); RBC Distribution Width 16.4 % (11.5-14.5); Red Blood Cell (RBC) Count 3.65 mill/uL (4.70-6.10); White Blood Cell (WBC) Count 6.2 thou/uL (4.8-10.8)
[2017-12-18 04:49] LABS: ALT (SGPT) 40 U/L (8-55); AST (SGOT) 188 U/L (5-34); Alkaline Phosphatase 101 U/L (40-150); Anion Gap 13 mmol/L (10-20); BUN (Urea Nitrogen) 21 mg/dL (8.4-25.7); Bilirubin, Total 0.4 mg/dL (0.2-1.2); Calc. Creatinine Clearance 66 mL/min (70-130); Carbon Dioxide 17 mmol/L (23-31); Chloride 113 mmol/L (98-107); Estimated GFR-MDRD Greater than 90; Globulin 2.3 g/dL (2.4-3.5); Glucose 110 mg/dL (83-110); Potassium 4.6 mmol/L (3.5-5.1); Protein, Total 5.3 g/dL (5.8-8.1); Sodium 138 mmol/L (136-145)
[2017-12-18] MEDS ORDERED: Nitroglycerin 50 MG/250 ML BOT 250 ML IVPB SCH (07:57)
[2017-12-18] MEDS: Lisinopril 2.5 MG TAB PO SCH (08:41)
[2017-12-18] MEDS: Potassium Chloride 10 MEQ TAB PO SCH (08:41)
[2017-12-18] MEDS: Ferrous Sulfate 325 MG TAB PO SCH ×2 (08:41→16:14)
[2017-12-18] MEDS: Furosemide 20 MG TAB PO SCH (08:41)
[2017-12-18] MEDS: Carvedilol 3.125 MG TAB PO SCH ×2 (08:42→16:15)
[2017-12-18] MEDS: Clopidogrel Bisulfate 75 MG TAB PO SCH (08:42)
[2017-12-18] MEDS: Atorvastatin Calcium 20 MG TAB PO SCH (21:05)
[2017-12-19 05:46] LABS: #Eosinphils 0.1 thou/uL (0.0-0.7); #Lymphocytes 0.9 thou/uL (1.20-3.40); #Monocytes 0.8 thou/uL (0.11-0.59); #Neutrophils 4.2 thou/uL (1.40-6.50); %Basophils 0.7 % (0.0-1.0); %Lymphocytes 15.2 % (21.0-51.0); %Monocytes 13.4 % (0.0-10.0); %Neutrophils 69.7 % (42.0-75.0); Hemoglobin 7.6 g/dL (14.0-18.0); Mean Corpuscular HGB CONC 31.2 g/dL (32.0-36.0); Mean Corpuscular Hemoglobin 21.8 pg (27.0-31.0); Mean Corpuscular Volume 69.9 fL (78.0-98.0); Platelet Count 181 thou/uL (130-400); RBC Distribution Width 16.4 % (11.5-14.5); Red Blood Cell (RBC) Count 3.49 mill/uL (4.70-6.10)
[2017-12-19 06:00] LABS: Anion Gap 9 mmol/L (10-20); BUN (Urea Nitrogen) 25 mg/dL (8.4-25.7); Calc. Creatinine Clearance 66 mL/min (70-130); Calcium 7.9 mg/dL (7.8-10.44); Carbon Dioxide 20 mmol/L (23-31); Chloride 112 mmol/L (98-107); Cholesterol 73 mg/dl (< 200 Desired); Estimated GFR-MDRD Greater than 90; Glucose 101 mg/dL (83-110); HDL Cholesterol 24 mg/dL (>60 Neg Risk); LDL Cholesterol, Calculated 29 mg/dL; Potassium 4.3 mmol/L (3.5-5.1); Sodium 137 mmol/L (136-145); Triglycerides 100 mg/dL (Less than 150)
[2017-12-19] MEDS: Potassium Chloride 10 MEQ TAB PO SCH (08:56)
[2017-12-19] MEDS: Ferrous Sulfate 325 MG TAB PO SCH ×2 (08:56→16:05)
[2017-12-19] MEDS: Carvedilol 3.125 MG TAB PO SCH ×2 (08:56→16:04)
[2017-12-19] MEDS: Furosemide 20 MG TAB PO SCH (08:56)
[2017-12-19] MEDS: Lisinopril 2.5 MG TAB PO SCH (08:56)
[2017-12-19] MEDS: Clopidogrel Bisulfate 75 MG TAB PO SCH (08:59)
--- NOTE | 2017-12-19 12:57 | EKG ---
Test Reason : Blood Pressure : / mmHG Vent. Rate : 087 BPM Atrial Rate : 087 BPM P-R Int : 144 ms QRS Dur : 130 ms QT Int : 388 ms P-R-T Axes : 077 057 042 degrees QTc Int : 466 ms Normal sinus rhythm Right bundle branch block Anterior infarct , possibly acute Lateral injury pattern ACUTE [place] / STEMI Abnormal ECG Confirmed by LING VICENTE, AVERY ([id number]), art editor HÉCTOR LUJAN ([id number]) on 12/19/2017 12:56:49 PM Referred By: Confirmed By:AVERY DUBON MD
[2017-12-19] MEDS: Atorvastatin Calcium 20 MG TAB PO SCH (21:08)
[2017-12-20 06:50] LABS: #Lymphocytes 0.8 thou/uL (1.20-3.40); #Monocytes 0.7 thou/uL (0.11-0.59); #Neutrophils 4.3 thou/uL (1.40-6.50); %Basophils 0.4 % (0.0-1.0); %Eosinophils 0.8 % (0.0-10.0); %Lymphocytes 12.9 % (21.0-51.0); %Monocytes 11.8 % (0.0-10.0); Mean Corpuscular HGB CONC 31.5 g/dL (32.0-36.0); Mean Corpuscular Hemoglobin 21.6 pg (27.0-31.0); Mean Corpuscular Volume 68.6 fL (78.0-98.0); Mean Platelet Volume 9.6 fL (7.4-10.4); Platelet Count 190 thou/uL (130-400); RBC Distribution Width 16.4 % (11.5-14.5); Red Blood Cell (RBC) Count 3.25 mill/uL (4.70-6.10); White Blood Cell (WBC) Count 5.8 thou/uL (4.8-10.8)
[2017-12-20 07:00] LABS: Anion Gap 8 mmol/L (10-20); BUN (Urea Nitrogen) 30 mg/dL (8.4-25.7); Calc. Creatinine Clearance 59 mL/min (70-130); Carbon Dioxide 22 mmol/L (23-31); Chloride 112 mmol/L (98-107); Estimated GFR-MDRD Greater than 90; Glucose 109 mg/dL (83-110); Potassium 3.9 mmol/L (3.5-5.1); Sodium 138 mmol/L (136-145)
[2017-12-20] MEDS: Ferrous Sulfate 325 MG TAB PO SCH ×2 (08:18→16:28)
[2017-12-20] MEDS: Lisinopril 2.5 MG TAB PO SCH (08:18)
[2017-12-20] MEDS: Clopidogrel Bisulfate 75 MG TAB PO SCH (08:18)
[2017-12-20] MEDS: Potassium Chloride 10 MEQ TAB PO SCH (08:19)
[2017-12-20] MEDS: Carvedilol 3.125 MG TAB PO SCH ×2 (08:19→16:28)
[2017-12-20] MEDS: Furosemide 20 MG TAB PO SCH (08:19)
[2017-12-20] MEDS ORDERED: Furosemide 20 MG/2 ML VIAL SLOW IVP SCH (15:00)
--- NOTE | 2017-12-20 16:39 | EKG ---
Test Reason : Blood Pressure : / mmHG Vent. Rate : 088 BPM Atrial Rate : 088 BPM P-R Int : 140 ms QRS Dur : 092 ms QT Int : 400 ms P-R-T Axes : 077 064 106 degrees QTc Int : 484 ms Sinus rhythm with Premature atrial complexes with Abberant conduction Anteroseptal infarct (cited on or before 21-NOV-2017) T wave abnormality, consider lateral ischemia Abnormal ECG Confirmed by LAURA HERNANDEZ ([id number]) on 12/20/2017 4:39:25 PM Referred By: CLAIR Confirmed By:LAURA HERNANDEZ
[2017-12-20] MEDS: Atorvastatin Calcium 20 MG TAB PO SCH (21:12)
[2017-12-21 05:57] LABS: Anion Gap 11 mmol/L (10-20); BUN (Urea Nitrogen) 30 mg/dL (8.4-25.7); Calc. Creatinine Clearance 58 mL/min (70-130); Calcium 8.1 mg/dL (7.8-10.44); Carbon Dioxide 19 mmol/L (23-31); Chloride 113 mmol/L (98-107); Estimated GFR-MDRD Greater than 90; Glucose 101 mg/dL (83-110); Potassium 3.8 mmol/L (3.5-5.1); Sodium 139 mmol/L (136-145)
[2017-12-21 06:35] LABS: Anisocytosis SLIGHT = 6-15 cells (100X) (0-5/hpf); Band 2 % (5-11); Hemoglobin 9.1 g/dL (14.0-18.0); Hypochromia SLIGHT = 6-15 cells (100X) (0-5/hpf); Lymphocytes 13 % (21-51); MDiff Complete? YES; Mean Corpuscular HGB CONC 32.4 g/dL (32.0-36.0); Mean Corpuscular Hemoglobin 23.1 pg (27.0-31.0); Mean Corpuscular Volume 71.3 fL (78.0-98.0); Mean Platelet Volume 9.5 fL (7.4-10.4); Microcytosis SLIGHT = 6-15 cells (100X) (0-5/hpf); Monocytes 10 % (0-10); Neutrophil 74 % (42-75); Platelet Count 192 thou/uL (130-400); RBC Distribution Width 17.3 % (11.5-14.5); Reactive Lymphocytes 1 % (0-10); Red Blood Cell (RBC) Count 3.92 mill/uL (4.70-6.10); White Blood Cell (WBC) Count 5.9 thou/uL (4.8-10.8)
[2017-12-21] MEDS: Potassium Chloride 10 MEQ TAB PO SCH (08:54)
[2017-12-21] MEDS: Ferrous Sulfate 325 MG TAB PO SCH ×2 (08:55→17:24)
[2017-12-21] MEDS: Furosemide 20 MG TAB PO SCH (08:55)
[2017-12-21] MEDS: Clopidogrel Bisulfate 75 MG TAB PO SCH (08:55)
[2017-12-21] MEDS: Lisinopril 2.5 MG TAB PO SCH (08:56)
[2017-12-21] MEDS: Carvedilol 3.125 MG TAB PO SCH ×2 (10:29→17:24)
[2017-12-21] MEDS: Atorvastatin Calcium 20 MG TAB PO SCH (20:36)
[2017-12-22 06:01] LABS: #Eosinphils 0.1 thou/uL (0.0-0.7); #Lymphocytes 1.2 thou/uL (1.20-3.40); #Monocytes 0.8 thou/uL (0.11-0.59); #Neutrophils 4.1 thou/uL (1.40-6.50); %Basophils 0.2 % (0.0-1.0); %Eosinophils 1.9 % (0.0-10.0); %Lymphocytes 19.2 % (21.0-51.0); %Monocytes 13.3 % (0.0-10.0); %Neutrophils 65.5 % (42.0-75.0); Hemoglobin 9.3 g/dL (14.0-18.0); Mean Corpuscular HGB CONC 31.9 g/dL (32.0-36.0); Mean Corpuscular Hemoglobin 23.3 pg (27.0-31.0); Mean Corpuscular Volume 73.1 fL (78.0-98.0); Mean Platelet Volume 9.6 fL (7.4-10.4); Platelet Count 203 thou/uL (130-400); Red Blood Cell (RBC) Count 3.97 mill/uL (4.70-6.10); White Blood Cell (WBC) Count 6.3 thou/uL (4.8-10.8)
[2017-12-22 06:20] LABS: Anion Gap 15 mmol/L (10-20); BUN (Urea Nitrogen) 33 mg/dL (8.4-25.7); Calc. Creatinine Clearance 57 mL/min (70-130); Calcium 8.4 mg/dL (7.8-10.44); Carbon Dioxide 16 mmol/L (23-31); Chloride 112 mmol/L (98-107); Estimated GFR-MDRD Greater than 90; Glucose 94 mg/dL (83-110); Potassium 3.8 mmol/L (3.5-5.1); Sodium 139 mmol/L (136-145)
[2017-12-22] MEDS: Lisinopril 2.5 MG TAB PO SCH (08:43)
[2017-12-22] MEDS: Potassium Chloride 10 MEQ TAB PO SCH (08:44)
[2017-12-22] MEDS: Furosemide 20 MG TAB PO SCH (08:44)
[2017-12-22] MEDS: Clopidogrel Bisulfate 75 MG TAB PO SCH (08:45)
[2017-12-22] MEDS: Carvedilol 3.125 MG TAB PO SCH ×2 (08:45→17:38)
[2017-12-22] MEDS: Ferrous Sulfate 325 MG TAB PO SCH ×2 (08:46→17:38)
[2017-12-22] MEDS: Nitroglycerin 0.4 MG TAB (25 Tab Bottle) SL PRN (09:45)
--- NOTE | 2017-12-22 18:15 | PDOC.CTH ---
Cardiology Progress Note - Subjective he had chest pain this morning resolved with nitro and a dose of morphine. - Objective Vital Signs Temp Pulse Resp BP Pulse Ox 12/22/17 11:25 98.0 F 68 18 114/58 L 95 12/22/17 08:43 74 12/22/17 08:35 98.0 F 74 16 94 L Weight 126 lb 8 oz 12/21/17 12/22/17 12/23/17 06:59 06:59 06:59 Intake Total 2000 340 Output Total 1300 100 Balance 700 240 - Physical Examination General/Neuro: alert & oriented x3, NAD Neck: no JVD present Lungs: CTA, unlabored respirations Heart: RRR Abdomen: NT/ND Extremities: other: (no edema.) - Telemetry Telemetry Rhythm: NSR - Labs Result Diagrams: 12/22/17 04:30 12/22/17 04:30 Troponin/CKMB CK-MB (CK-2) 253.4 ng/mL (0-6.6) H* 12/17/17 19:57 Troponin I 136.609 ng/mL (< 0.028) H* 12/17/17 19:57 - Assessment/Plan 1. Acute anterior STEMI 2. Severe ischemic CM EF at 25-30% 3. Non compliance. 4. S/P PCI to LAD. PLAN: - Continue current regimen. - May discharge after lifevest set up. - Continue Aspirin/Statin/BB/ACEI.
[2017-12-22] MEDS: Atorvastatin Calcium 20 MG TAB PO SCH (22:02)
[2017-12-23 05:18] LABS: #Eosinphils 0.1 thou/uL (0.0-0.7); #Lymphocytes 0.9 thou/uL (1.20-3.40); #Monocytes 0.7 thou/uL (0.11-0.59); #Neutrophils 4.5 thou/uL (1.40-6.50); %Basophils 0.2 % (0.0-1.0); %Lymphocytes 15.2 % (21.0-51.0); %Neutrophils 72.6 % (42.0-75.0); Hemoglobin 9.6 g/dL (14.0-18.0); Mean Corpuscular HGB CONC 31.5 g/dL (32.0-36.0); Mean Corpuscular Hemoglobin 23.2 pg (27.0-31.0); Mean Corpuscular Volume 73.9 fL (78.0-98.0); Mean Platelet Volume 9.7 fL (7.4-10.4); Platelet Count 212 thou/uL (130-400); RBC Distribution Width 19.5 % (11.5-14.5); Red Blood Cell (RBC) Count 4.14 mill/uL (4.70-6.10); White Blood Cell (WBC) Count 6.2 thou/uL (4.8-10.8)
[2017-12-23 05:34] LABS: Anion Gap 12 mmol/L (10-20); BUN (Urea Nitrogen) 30 mg/dL (8.4-25.7); Calc. Creatinine Clearance 58 mL/min (70-130); Calcium 8.1 mg/dL (7.8-10.44); Carbon Dioxide 19 mmol/L (23-31); Chloride 109 mmol/L (98-107); Estimated GFR-MDRD Greater than 90; Glucose 119 mg/dL (83-110); Potassium 3.5 mmol/L (3.5-5.1); Sodium 136 mmol/L (136-145)
[2017-12-23] MEDS: Carvedilol 3.125 MG TAB PO SCH ×2 (09:11→16:21)
[2017-12-23] MEDS: Potassium Chloride 10 MEQ TAB PO SCH (09:11)
[2017-12-23] MEDS: Furosemide 20 MG TAB PO SCH (09:11)
[2017-12-23] MEDS: Ferrous Sulfate 325 MG TAB PO SCH ×2 (09:11→16:21)
[2017-12-23] MEDS: Clopidogrel Bisulfate 75 MG TAB PO SCH (09:11)
[2017-12-23] MEDS: Lisinopril 2.5 MG TAB PO SCH (09:11)
--- NOTE | 2017-12-23 16:45 | PDOC.CTH ---
Cardiology Progress Note - Subjective He is oding well. No chest pain, tightness, pressure. - Objective Vital Signs Temp Pulse Pulse Pulse Resp BP BP 12/23/17 15:30 98.1 F 62 16 12/23/17 11:39 98.1 F 64 18 12/23/17 09:11 66 12/23/17 08:12 75 63 168/70 H 125/61 12/23/17 07:55 98.6 F 66 18 12/23/17 07:46 98.6 F 66 18 BP Pulse Ox Pulse Ox Pulse Ox 12/23/17 15:30 111/56 L 95 12/23/17 11:39 107/58 L 97 12/23/17 09:11 12/23/17 08:12 96 95 12/23/17 07:55 95 12/23/17 07:46 122/56 L 94 L Weight 130 lb 12/22/17 12/23/17 12/24/17 06:59 06:59 06:59 Intake Total 340 150 Output Total 100 100 Balance 240 50 - Physical Examination General/Neuro: alert & oriented x3, NAD Neck: no JVD present Lungs: CTA, unlabored respirations Heart: RRR Abdomen: NT/ND Extremities: other: (no edema) - Telemetry Telemetry Rhythm: NS SVT - Labs Result Diagrams: 12/23/17 04:39 12/23/17 04:39 Troponin/CKMB CK-MB (CK-2) 253.4 ng/mL (0-6.6) H* 12/17/17 19:57 Troponin I 136.609 ng/mL (< 0.028) H* 12/17/17 19:57 - Assessment/Plan 1. Acute anterior STEMI 2. Severe ischemic CM EF at 25-30% 3. Non compliance. 4. S/P PCI to LAD. 5. Non sustained SVT. PLAN: - Continue current regimen. - Continue BB for SVT. - May discharge after lifevest set up. - Continue Aspirin/Statin/BB/ACEI.
[2017-12-23] MEDS: Atorvastatin Calcium 20 MG TAB PO SCH (21:38)
[2017-12-24] MEDS ORDERED: Clopidogrel Bisulfate 75 MG TAB ONE (03:24)
[2017-12-24] MEDS: Nitroglycerin 0.4 MG TAB (25 Tab Bottle) SL PRN (03:29)
[2017-12-24 05:42] LABS: #Eosinphils 0.1 thou/uL (0.0-0.7); #Monocytes 0.8 thou/uL (0.11-0.59); #Neutrophils 3.5 thou/uL (1.40-6.50); %Basophils 0.4 % (0.0-1.0); %Eosinophils 1.5 % (0.0-10.0); %Lymphocytes 18.6 % (21.0-51.0); %Monocytes 14.7 % (0.0-10.0); %Neutrophils 64.8 % (42.0-75.0); Hemoglobin 9.1 g/dL (14.0-18.0); Mean Corpuscular Hemoglobin 23.8 pg (27.0-31.0); Mean Corpuscular Volume 74.4 fL (78.0-98.0); Mean Platelet Volume 9.7 fL (7.4-10.4); Platelet Count 207 thou/uL (130-400); RBC Distribution Width 19.3 % (11.5-14.5); Red Blood Cell (RBC) Count 3.81 mill/uL (4.70-6.10); White Blood Cell (WBC) Count 5.4 thou/uL (4.8-10.8)
[2017-12-24 06:07] LABS: Anion Gap 9 mmol/L (10-20); BUN (Urea Nitrogen) 25 mg/dL (8.4-25.7); Calc. Creatinine Clearance 60 mL/min (70-130); Carbon Dioxide 23 mmol/L (23-31); Chloride 109 mmol/L (98-107); Estimated GFR-MDRD Greater than 90; Glucose 102 mg/dL (83-110); Potassium 3.9 mmol/L (3.5-5.1); Sodium 137 mmol/L (136-145)
[2017-12-24] MEDS: Lisinopril 2.5 MG TAB PO SCH (08:34)
[2017-12-24] MEDS: Clopidogrel Bisulfate 75 MG TAB PO SCH (08:35)
[2017-12-24] MEDS: Carvedilol 3.125 MG TAB PO SCH (08:35)
[2017-12-24] MEDS: Potassium Chloride 10 MEQ TAB PO SCH (08:35)
[2017-12-24] MEDS: Ferrous Sulfate 325 MG TAB PO SCH ×2 (08:35→17:21)
[2017-12-24] MEDS: Furosemide 20 MG TAB PO SCH (08:35)
--- NOTE | 2017-12-24 10:49 | EKG ---
Test Reason : Blood Pressure : / mmHG Vent. Rate : 074 BPM Atrial Rate : 074 BPM P-R Int : 156 ms QRS Dur : 092 ms QT Int : 434 ms P-R-T Axes : 082 030 131 degrees QTc Int : 481 ms Normal sinus rhythm Anteroseptal infarct (cited on or before 21-NOV-2017) T wave abnormality, consider lateral ischemia Abnormal ECG When compared with ECG of 18-DEC-2017 06:49, Abberant conduction is no longer Present Confirmed by DR. Nevaeh HERNANDEZ ([id number]), purchasing expeditor HÉCTOR LUJAN ([id number]) on 12/24/2017 10:49:12 AM Referred By: ALISON Confirmed By:DR. Nevaeh HERNANDEZ
[2017-12-24] MEDS: Carvedilol 6.25 MG TAB PO SCH (17:21)
[2017-12-24] MEDS: Atorvastatin Calcium 20 MG TAB PO SCH (21:40)
[2017-12-25 05:22] LABS: #Eosinphils 0.1 thou/uL (0.0-0.7); #Lymphocytes 1.1 thou/uL (1.20-3.40); #Monocytes 0.7 thou/uL (0.11-0.59); #Neutrophils 4.3 thou/uL (1.40-6.50); %Basophils 0.4 % (0.0-1.0); %Eosinophils 1.4 % (0.0-10.0); %Lymphocytes 16.9 % (21.0-51.0); %Monocytes 11.9 % (0.0-10.0); %Neutrophils 69.5 % (42.0-75.0); Hemoglobin 10.1 g/dL (14.0-18.0); Mean Corpuscular HGB CONC 30.9 g/dL (32.0-36.0); Mean Corpuscular Hemoglobin 23.2 pg (27.0-31.0); Mean Corpuscular Volume 75.1 fL (78.0-98.0); Mean Platelet Volume 9.8 fL (7.4-10.4); Platelet Count 202 thou/uL (130-400); Red Blood Cell (RBC) Count 4.35 mill/uL (4.70-6.10); White Blood Cell (WBC) Count 6.2 thou/uL (4.8-10.8)
[2017-12-25 05:44] LABS: Anion Gap 12 mmol/L (10-20); BUN (Urea Nitrogen) 24 mg/dL (8.4-25.7); Calc. Creatinine Clearance 60 mL/min (70-130); Calcium 8.1 mg/dL (7.8-10.44); Carbon Dioxide 19 mmol/L (23-31); Chloride 110 mmol/L (98-107); Estimated GFR-MDRD Greater than 90; Glucose 118 mg/dL (83-110); Potassium 3.9 mmol/L (3.5-5.1); Sodium 137 mmol/L (136-145)
[2017-12-25] MEDS: Potassium Chloride 10 MEQ TAB PO SCH (08:09)
[2017-12-25] MEDS: Furosemide 20 MG TAB PO SCH (08:10)
[2017-12-25] MEDS: Clopidogrel Bisulfate 75 MG TAB PO SCH (08:10)
[2017-12-25] MEDS: Lisinopril 2.5 MG TAB PO SCH (08:10)
[2017-12-25] MEDS: Carvedilol 6.25 MG TAB PO SCH ×2 (08:10→16:32)
[2017-12-25] MEDS: Ferrous Sulfate 325 MG TAB PO SCH ×2 (08:10→16:31)
[2017-12-25] MEDS: Atorvastatin Calcium 20 MG TAB PO SCH (20:07)
[2017-12-26 06:40] LABS: Hemoglobin 10.5 g/dL (14.0-18.0); Mean Corpuscular HGB CONC 31.8 g/dL (32.0-36.0); Mean Corpuscular Hemoglobin 23.7 pg (27.0-31.0); Mean Corpuscular Volume 74.4 fL (78.0-98.0); Mean Platelet Volume 9.9 fL (7.4-10.4); Platelet Count 283 thou/uL (130-400); RBC Distribution Width 18.8 % (11.5-14.5); Red Blood Cell (RBC) Count 4.43 mill/uL (4.70-6.10); White Blood Cell (WBC) Count 6.5 thou/uL (4.8-10.8)
[2017-12-26 06:41] LABS: #Lymphocytes 1.1 thou/uL (1.20-3.40); #Monocytes 0.8 thou/uL (0.11-0.59); #Neutrophils 4.5 thou/uL (1.40-6.50); %Basophils 0.4 % (0.0-1.0); %Eosinophils 0.7 % (0.0-10.0); %Monocytes 12.7 % (0.0-10.0); %Neutrophils 69.2 % (42.0-75.0)
[2017-12-26 06:53] LABS: Anion Gap 13 mmol/L (10-20); BUN (Urea Nitrogen) 23 mg/dL (8.4-25.7); Calc. Creatinine Clearance 59 mL/min (70-130); Calcium 8.6 mg/dL (7.8-10.44); Carbon Dioxide 19 mmol/L (23-31); Chloride 112 mmol/L (98-107); Estimated GFR-MDRD Greater than 90; Glucose 103 mg/dL (83-110); Sodium 140 mmol/L (136-145)
[2017-12-26] MEDS: Potassium Chloride 10 MEQ TAB PO SCH (07:47)
[2017-12-26] MEDS: Carvedilol 6.25 MG TAB PO SCH ×2 (07:47→16:34)
[2017-12-26] MEDS: Clopidogrel Bisulfate 75 MG TAB PO SCH (07:47)
[2017-12-26] MEDS: Ferrous Sulfate 325 MG TAB PO SCH ×2 (07:47→16:35)
[2017-12-26] MEDS: Furosemide 20 MG TAB PO SCH (07:48)
[2017-12-26] MEDS: Lisinopril 2.5 MG TAB PO SCH (07:48)
[2017-12-26 08:38] LABS: Hypochromia SLIGHT = 6-15 cells (100X) (0-5/hpf); MDiff Complete? YES; Microcytosis SLIGHT = 6-15 cells (100X) (0-5/hpf); Ovalocytes SLIGHT = 2-5 cells (100X) (0-1/hpf); Polychromasia SLIGHT = 2-3 cells (100X) (0-2/hpf)
[2017-12-26] MEDS: Atorvastatin Calcium 20 MG TAB PO SCH (20:07)
[2017-12-27 05:54] LABS: #Eosinphils 0.1 thou/uL (0.0-0.7); #Lymphocytes 1.3 thou/uL (1.20-3.40); #Monocytes 0.9 thou/uL (0.11-0.59); #Neutrophils 5.9 thou/uL (1.40-6.50); %Basophils 0.3 % (0.0-1.0); %Eosinophils 1.4 % (0.0-10.0); %Monocytes 11.1 % (0.0-10.0); %Neutrophils 71.2 % (42.0-75.0); Hemoglobin 10.2 g/dL (14.0-18.0); Mean Corpuscular HGB CONC 31.2 g/dL (32.0-36.0); Mean Corpuscular Volume 73.8 fL (78.0-98.0); Mean Platelet Volume 9.8 fL (7.4-10.4); Platelet Count 228 thou/uL (130-400); RBC Distribution Width 18.7 % (11.5-14.5); Red Blood Cell (RBC) Count 4.42 mill/uL (4.70-6.10); White Blood Cell (WBC) Count 8.2 thou/uL (4.8-10.8)
[2017-12-27 06:02] LABS: Anion Gap 12 mmol/L (10-20); BUN (Urea Nitrogen) 23 mg/dL (8.4-25.7); Calc. Creatinine Clearance 57 mL/min (70-130); Carbon Dioxide 19 mmol/L (23-31); Chloride 110 mmol/L (98-107); Estimated GFR-MDRD Greater than 90; Glucose 103 mg/dL (83-110); Potassium 4.4 mmol/L (3.5-5.1); Sodium 137 mmol/L (136-145)
[2017-12-27] MEDS: Furosemide 20 MG TAB PO SCH (07:40)
[2017-12-27] MEDS: Carvedilol 6.25 MG TAB PO SCH ×2 (07:40→16:40)
[2017-12-27] MEDS: Clopidogrel Bisulfate 75 MG TAB PO SCH (07:40)
[2017-12-27] MEDS: Potassium Chloride 10 MEQ TAB PO SCH (07:40)
[2017-12-27] MEDS: Ferrous Sulfate 325 MG TAB PO SCH ×2 (07:40→16:41)
[2017-12-27] MEDS: Lisinopril 2.5 MG TAB PO SCH (07:41)
[2017-12-27 10:58] VITALS: BMI 20.7
[2017-12-27 19:45] VITALS: BP 108/55; TEMP 98.4
[2017-12-27] MEDS: Atorvastatin Calcium 20 MG TAB PO SCH (20:20)
== END 2017-12-27 21:57 | DRG 251 ==
LOC: ERS 11:09 → CCU 11:19 → CCL 11:37 → CCU 12:08 → 2NO 12-18 18:05
PROVIDERS: ADMIT Internal Medicine Cardiovascular Disease; ATTEND Internal Medicine Cardiovascular Disease
PROC: 02C03ZZ Extirpation of Matter from Coronary Artery, One Artery, Percutaneous Approach (ICD-10-PCS; principal; 2017-12-17)
PROC: 02713ZZ Dilation of Coronary Artery, Two Arteries, Percutaneous Approach (ICD-10-PCS; 2017-12-17)
PROC: 4A023N7 Measurement of Cardiac Sampling and Pressure, Left Heart, Percutaneous Approach (ICD-10-PCS; 2017-12-17)
PROC: B2111ZZ Fluoroscopy of Multiple Coronary Arteries using Low Osmolar Contrast (ICD-10-PCS; 2017-12-17)
PROC: B2151ZZ Fluoroscopy of Left Heart using Low Osmolar Contrast (ICD-10-PCS; 2017-12-17)
PROC: B240ZZ3 Ultrasonography of Single Coronary Artery, Intravascular (ICD-10-PCS; 2017-12-17)
PROC: 3E07317 Introduction of Other Thrombolytic into Coronary Artery, Percutaneous Approach (ICD-10-PCS; 2017-12-17)
PROC: 30233N1 Transfusion of Nonautologous Red Blood Cells into Peripheral Vein, Percutaneous Approach (ICD-10-PCS; 2017-12-20)
DX: I21.09 ST elevation (STEMI) myocardial infarction involving other coronary artery of anterior wall (principal); T82.867A Thrombosis due to cardiac prosthetic devices, implants and grafts, initial encounter; I47.1 Supraventricular tachycardia; I10 Essential (primary) hypertension; I25.10 Atherosclerotic heart disease of native coronary artery without angina pectoris; I25.5 Ischemic cardiomyopathy; Z91.19 Patient's noncompliance with other medical treatment and regimen; I25.2 Old myocardial infarction; Z95.5 Presence of coronary angioplasty implant and graft
CPT/HCPCS: 36415; 36416; 36430; 76942; 80048; 80053; 80061; 82550; 82553; 84484; 85025; 85347; 86850; 86900; 86901; 92941; 92973; 92977; 92978; 93005; 93010; 93306; 93454; 93798; 94760; 99152; 99153; A4216; C1725; C1753; C1757; C1769; C1876; C1887; J0153; J1644; J1940; J2250; J2270; J3010; J3246; P9016